=== PATIENT | female | born 1965 | race Caucasian/White ===

== ENCOUNTER 2017-03-15 12:44 | Emergency (ER) | payer OTHER, BC ==
[2017-03-15 12:56] VITALS: BP 130/82; PULSE 80; TEMP 98.2; BMI 25.0
[2017-03-15] MEDS ORDERED: SULFAMETHOXAZOLE/TRIMETHOPRIM 800MG/160MG D.S. TABLET PO ONE (13:30)
[2017-03-15] MEDS ORDERED: SULFAMETHOXAZOLE/TRIMETHOPRIM 800MG/160MG D.S. TABLET ONE (13:35)
--- NOTE | 2017-03-15 13:35 | PDOC ---
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 The patient reports that the the abscess is painful to touch and has increased in size within the last 24 hours. The patient notes that she has tried warm compresses with no relief of symptoms. The patient states there has been no drainage from the abscess. The patient denies any fever or chills. Allergies: NKA Past surgical history: None reported. Social history: No reported alcohol, drug, or cigarette use. <Gina Archuleta - Last Filed: 03/15/17 13:58> - General Chief Complaint: Abscess Boil Stated Complaint: ABSCESS ARM Time Seen by Provider: 03/15/17 12:58 Past History - Past Medical History COPD: No HTN: Yes - Suicide/Smoking/Psychosocial Hx Smoking History: Never smoked Hx Alcohol Use: No Drug/Substance Use Hx: No Substance Use Type: None <Devon Ochoa - Last Filed: 03/15/17 13:30> <Gina Archuleta - Last Filed: 03/15/17 13:58> - Past Medical History Allergies/Adverse Reactions: Allergies Allergy/AdvReac Type Severity Reaction Status Date / Time No Known Allergies Allergy Verified 03/15/17 12:52 Home Medications: Ambulatory Orders Amlodipine/Valsartan [Exforge 10-160 mg Tablet] 1 tab PO DAILY 03/15/17 Sulfamethoxazole/Trimethoprim [Bactrim Ds -] 1 tab PO BID #20 tablet 03/15/17 Review of Systems - Review of Systems Constitutional: No: Chills, Fever Musculoskeletal: No: Joint Pain, Muscle Pain Integumentary: Yes: See HPI Neurological: No: Tingling, Weakness <Devon Ochoa - Last Filed: 03/15/17 13:30> *Physical Exam - Vital Signs Last Vital Signs Temp Pulse Resp BP Pulse Ox 98.2 F 80 18 130/82 100 03/15/17 12:47 03/15/17 12:47 03/15/17 12:47 03/15/17 12:47 03/15/17 12:47 <Devon Ochoa - Last Filed: 03/15/17 13:30> - Vital Signs Last Vital Signs Temp Pulse Resp BP Pulse Ox 98.2 F 80 18 130/82 100 03/15/17 12:47 03/15/17 12:47 03/15/17 12:47 03/15/17 12:47 03/15/17 12:47 - Physical Exam Comments: 03/15/17 13:40 GENERAL: The patient is awake, alert, and fully oriented, in no acute distress. HEAD: Normal with no signs of trauma. EYES: Pupils equal, round and reactive to light, extraocular movements intact, sclera anicteric, conjunctiva clear with no pallor. ENT: Ears normal, nares patent, oropharynx clear without exudates. Moist mucous membranes. NECK: Normal range of motion, supple without lymphadenopathy, JVD, or masses. LUNGS: Breath sounds equal, clear to auscultation bilaterally. No wheeze/ crackles. HEART: Regular rate and rhythm, normal S1 and S2 without murmur or rub. ABDOMEN: Soft/nontender/nondistended. BS wnl. No guarding or rebound. No palpable masses. No hepatosplenomegaly. EXTREMITIES: Normal range of motion. No clubbing or cyanosis. No cords. NEUROLOGICAL: Cranial nerves II through XII grossly intact. Normal speech, normal gait. PSYCH: Normal mood, normal affect. SKIN: (+) Proximal left forearm 4-5 cm cyst with pustular head. Some tenderness. No fluctuance, mostly endurance. No warmth, no erythema, and no joint involvement. Neurovascularly intact distally. <Gina Archuleta - Last Filed: 03/15/17 13:58> ED Treatment Course - Medications Given in the ED: ED Medications Discontinued Medications Generic Name Dose Route Start Last Admin Trade Name Freq PRN Reason Stop Dose Admin Trimethoprim/Sulfamethoxazole 1 each 03/15/17 13:30 03/15/17 13:36 Bactrim Ds - PO 03/15/17 13:31 1 each ONCE ONE Administration <Gina Archuleta - Last Filed: 03/15/17 13:58> Medical Decision Making - Medical Decision Making 03/15/17 13:31 A portion of this note was documented by scribe services under my direction. I have reviewed the details of the note, within reason, and agree with the documentation with the following case summary and management plan written by me. 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 No drainage , no fevers or chills, no motor or sensory deficits. No history of recurring skin infections or known MRSA. Attempted warm soaks without change, presents for evaluation due to worsening discomfort in the area. Afebrile. Well-appearing. 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 INCISION AND DRAINAGE PROCEDURE: The skin was prepped with Betadine solution. 2% lidocaine was injected subcutaneously for local anesthesia. Incision of the center of the abscess was performed with a #11 blade. Slight purulent material was expressed from the incision. A culture was sent. A curved clamp was used to break up loculations within the abscess. Further purulent material was expressed from the incision. Gauze packing was placed within the wound. A clean, dry, sterile dressing was placed. Patient was advised regarding wound care and followup for packing removal. Tolerated well. 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 Wound check in 48h. Understands return criteria. <Devon Ochoa - Last Filed: 03/15/17 13:30> *DC/Admit/Observation/Transfer <Devon Ochoa - Last Filed: 03/15/17 13:30> - Attestations Scribe Attestion: 03/15/17 13:58 Documentation prepared by Gina Archuleta, acting as center medical director for Devon Ochoa MD. <Gina Archuleta - Last Filed: 03/15/17 13:58> Diagnosis at time of Disposition: Subcutaneous cyst - Discharge Dispostion Disposition: HOME Condition at time of disposition: Improved - Prescriptions Prescriptions: Sulfamethoxazole/Trimethoprim [Bactrim Ds -] 1 tab PO BID #20 tablet - Patient Instructions Printed Discharge Instructions: DI for Incision and Drainage of a Skin Abscess Additional Instructions: Activity as tolerated. Stay hydrated. Tylenol 1000 mg every 8 hours and/or ibuprofen 600 mg every 8 hours as needed for pain. Maintain current dressing for 48 hours, take down the Curlex if needed for showering but keep the wound clean and completely dry. Take Bactrim as prescribed for 10 days. A culture was sent and the results should be available in about 3 days. Continue your medications as previously prescribed by your physician. You should follow up in [facility] in 48 hours for a wound check. Return to the emergency department sooner for any new or concerning symptoms, particularly increasing pain, redness or swelling, numbness or tingling, fevers or chills. - Post Discharge Activity Forms/Work/School Notes: Back to Work
--- NOTE | 2017-03-17 08:24 | PDOC ---
Patient Follow-up (Call Back) - Post ED Follow - Up Condition at time of discharge: Improved Disposition at time of original discharge: HOME Reason for Call Back: Abnwl. Microbiology (Wound culture shows Staphylococcus latex coag positive patient was placed on Bactrim upon discharge which is appropriate coverage for the above. Will await final results.)
== END 2017-03-15 13:45 | disposition home or self-care (01) ==
LOC: JER 12:44
PROC: 0J9H0ZZ Drainage of Left Lower Arm Subcutaneous Tissue and Fascia, Open Approach (ICD-10-PCS; principal; 2017-03-15)
DX: L02.414 Cutaneous abscess of left upper limb (principal)
CPT/HCPCS: 87070; 87186; 87205; 99281-25

== ENCOUNTER 2017-03-17 12:18 | Emergency (ER) | payer OTHER, BC ==
[2017-03-17 12:22] VITALS: BP 126/84; PULSE 88; TEMP 98; BMI 25.0
--- NOTE | 2017-03-17 12:53 | PDOC ---
Suture Removal/Wound Check HPI - History of Present Illness Chief Complaint: Revisit,Wound Recheck Stated Complaint: EMPLOYEE, WOUND CHECK Time Seen by Provider: 03/17/17 12:39 History Source: Yes: Patient Exam Limitations: Yes: No Limitations [facility] Date of Last ED visit: 03/15/17 - Previous ED Treatment Type of procedure performed on last visit: Yes: I&D of Abscess (left forearm abscess drained 2 days ago packing placed) Tetanus Immunization: Yes: Up to Date Past History - Past Medical History Allergies/Adverse Reactions: Allergies Allergy/AdvReac Type Severity Reaction Status Date / Time No Known Allergies Allergy Verified 03/17/17 12:21 Home Medications: Ambulatory Orders Amlodipine/Valsartan [Exforge 10-160 mg Tablet] 1 tab PO DAILY 03/15/17 Sulfamethoxazole/Trimethoprim [Bactrim Ds -] 1 tab PO BID #20 tablet 03/15/17 COPD: No HTN: Yes - Suicide/Smoking/Psychosocial Hx Smoking History: Never smoked Information on smoking cessation initiated: No Hx Alcohol Use: No Drug/Substance Use Hx: No Substance Use Type: None Suture Removal/Wound Check PE - Physical Exam Laceration/Wound Check Symptoms: reports: Pain. denies: Fever, Chills Comments: 03/17/17 13:32 left forearm abscess with packing pt c/o pain however she states the swelling has improved pt taking bactrim no fever no chills, no streaking up the arm Current Severity Level: Mild Maximum Severity Level: Moderate Location of Laceration/Wound: left: Forearm (outer forearm ) *Review of Systems - Review of Systems Able to Perform ROS?: Yes Constitutional: No: Symptoms Reported HEENTM: No: Symptoms Reported Respiratory: No: Symptoms reported Cardiac (ROS): No: Symptoms Reported ABD/GI: No: Symptoms Reported : No: Symptoms Reported Musculoskeletal: No: Symptoms Reported Integumentary: Yes: Symptoms Reported Medical Decision Making - Medical Decision Making 03/17/17 13:34 cc: abscess that was drained 2 days ago here for packing removal. left forearm. pt states she has pain however the drainage has improved. *DC/Admit/Observation/Transfer Diagnosis at time of Disposition: Visit for wound check - Discharge Dispostion Disposition: HOME Condition at time of disposition: Good - Referrals Referrals: STAFF,NOT ON [Primary Care Provider] - Santi Garza MD [Staff Physician] - - Patient Instructions Additional Instructions: follow with [facility] for clearance to return your wound does not have MRSA keep clean and dry keep covered until healed follow with the surgeon for follow up if symptoms worsen or continue - Post Discharge Activity
== END 2017-03-17 13:33 | disposition home or self-care (01) ==
LOC: JERFT 12:18
DX: L02.414 Cutaneous abscess of left upper limb (principal)
CPT/HCPCS: 99281-25